=== PATIENT | female | born 1960 | race Caucasian/White ===

== ENCOUNTER 2016-11-11 14:09 | Emergency (ER) | payer OTHER ==
[2016-11-11] MEDS ORDERED: Nitrostat 0.4 MG (ED) SL ONE ×2 (14:22→14:35)
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
[2016-11-11 14:39] LABS: Eosinophil % 3.5 % (0.00-5.0); Granulocytes % 55.9 % (36.0-66.0); Mean Corpuscular Hemoglobin 31.2 pg (26-32); Mean Platelet Volume 9.2 fl (6-9.5); Monocytes % 7.6 % (0.0-12.0); Platelet Count 249 K/mm3 (150-450); Red Blood Count 4.45 M/mm3 (4.1-5.4); White Blood Count 5.1 K/mm3 (4.0-10.5)
--- NOTE | 2016-11-11 14:50 | XRAY ---
Indication: Chest pain/pressure. Comparison: July 13, 2014. PA/lateral chest again demonstrates normal heart and lungs. Bony thorax intact again with old left 4th/5th rib fractures with hardware and spinal degenerative changes. No new/acute findings.
[2016-11-11 15:00] LABS: INR 1.03 (0.8-3.0); PROTIME 11.6 SECONDS (9.95-12.35)
[2016-11-11 15:03] LABS: PTT 34.3 SECONDS (25.3-37.0)
[2016-11-11 15:15] LABS: ALBUMIN 3.9 g/dL (3.4-5.0); ANION GAP 15.5 MEQ/L (5-15); BILIRUBIN,TOTAL 0.2 mg/dL (0.2-1.0); Carbon Dioxide 21.2 mEq/L (21-32); Potassium 3.7 mEq/L (3.5-5.1); Total Protein 7.7 gm/dL (6.4-8.2)
[2016-11-11 15:35] VITALS: BP 103/61; PULSE 58; O2SAT 97
== END 2016-11-11 15:59 | disposition home or self-care (01) ==
LOC: ED 14:09
DX: M94.0 Chondrocostal junction syndrome [Tietze] (principal); R07.89 Other chest pain; R42 Dizziness and giddiness; R05 Cough
CPT/HCPCS: 36000; 36415; 71020; 80053; 82550; 83880; 84484; 85025; 85610; 85730; 93005; 93041; 99284; 99285; A9270-GY

== ENCOUNTER 2017-04-28 12:06 | Observation (INO) | payer OTHER ==
[2017-04-28] MEDS ORDERED: NITRO-BID 2% UD PACKETS TOP ONE (12:39)
[2017-04-28] MEDS ORDERED: Nitrostat 0.4 MG (ED) SL ONE ×2 (12:39→13:00)
[2017-04-28] MEDS ORDERED: Sodium Chloride 0.9% 1000 ML 1,000 ML IV SCH (12:45)
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
[2017-04-28] MEDS ORDERED: NITRO-BID 2% UD PACKETS ONE (13:00)
--- NOTE | 2017-04-28 13:02 | XRAY ---
Indication: Chest pain. Comparison: November 11, 2016. Portable chest again demonstrates normal heart and lungs. Bony thorax intact with stable left 4th/5th rib fixation hardware and mild spinal degenerative changes. No new/acute findings.
[2017-04-28 13:17] LABS: BASOPHIL % 0.5 % (0.0-0.4); Basophil (Absolute #) 0.03 (0-0.4); Eosinophil % 2.4 % (0.00-5.0); Eosinophil (Absolute #) 0.14 (0-0.5); Granulocyte Absolute (ANC) 3.35 (1.4-6.9); Granulocytes % 58.6 % (36.0-66.0); Hemoglobin 13.3 gm/dl (12.0-16.0); Lymphocyte (Absolute #) 1.83 (1.0-4.6); Lymphocytes % 31.9 % (24.0-44.0); Mean Cell Volume 92.2 fl (78-100); Mean Corpuscular Hemoglobin 30.6 pg (26-32); Mean Corpuscular Hgb Concent. 33.3 g/dl (32-36); Mean Platelet Volume 9.1 fl (6-9.5); Monocyte (Absolute #) 0.38 (0.0-1.3); Monocytes % 6.6 % (0.0-12.0); Platelet Count 254 K/mm3 (150-450); Red Blood Count 4.34 M/mm3 (4.1-5.4); Red Cell Distribution Width 12.3 % (11.5-14.0); White Blood Count 5.7 K/mm3 (4.0-10.5)
[2017-04-28 13:21] LABS: ALBUMIN 3.8 g/dL (3.4-5.0); ALKALINE PHOSPHATASE 108 U/L (46-116); ANION GAP 14.5 MEQ/L (5-15); BLOOD UREA NITROGEN 18 mg/dL (9-20); CHLORIDE 109 mEq/L (98-107); Calcium 8.6 mg/dL (8.5-10.1); Carbon Dioxide 21.7 mEq/L (21-32); Creatinine 1 0.86 mg/dl (0.55-1.30); EST GLOMERULAR FILTRATION RATE > 60 ML/MIN; Glucose 104 MG/DL (70-110); Potassium 3.7 mEq/L (3.5-5.1); SGOT/AST 18 U/L (15-37); SGPT/ALT 19 U/L (12-78); SODIUM 142 mEq/L (136-145)
[2017-04-28] MEDS ORDERED: MAALOX ES 30 ML UNIT DOSE PO PRN (15:06)
[2017-04-28] MEDS ORDERED: Nitrostat 0.4 MG Tablet SL PRN (15:06)
[2017-04-28] MEDS ORDERED: MILK OF MAGNESIA 30 ML PO PRN (15:06)
[2017-04-28] MEDS ORDERED: Senokot-S Tablet PO PRN (15:06)
[2017-04-28] MEDS ORDERED: Zofran 4 MG/2 ML VIAL IV PRN (15:06)
[2017-04-28] MEDS ORDERED: xanAX 0.5 MG PO PRN (15:10)
[2017-04-28] MEDS ORDERED: Sodium Chloride 0.9% 500 ML 500 ML IV SCH (15:15)
[2017-04-28 15:41] LABS: INR 1.06 (0.8-3.0)
[2017-04-28] MEDS: TYLENOL 325 MG PO PRN ×2 (16:09→21:44)
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
[2017-04-28] MEDS: Ranexa 500 MG PO SCH (21:43)
[2017-04-28] MEDS: Topamax 100 MG PO SCH (21:44)
[2017-04-28] MEDS: NITRO-BID 2% UD PACKETS TOP SCH (21:45)
[2017-04-28] MEDS: lamICTAL 100MG TABLET PO SCH (21:45)
[2017-04-28] MEDS ORDERED: ZOCOR 20MG PO SCH (22:00)
[2017-04-28] MEDS ORDERED: NON-FORMULARY ITEM (Topiramate [Topamax] 200 MG) PO SCH (22:00)
[2017-04-28] MEDS ORDERED: NON-FORMULARY ITEM (Atorvastatin Calcium [Lipitor] 1 TAB) PO SCH (22:00)
[2017-04-29] MEDS: NITRO-BID 2% UD PACKETS TOP SCH (05:42)
[2017-04-29] MEDS: TYLENOL 325 MG PO PRN (05:55)
[2017-04-29 07:39] VITALS: BP 138/67; PULSE 71; O2SAT 98
--- NOTE | 2017-04-29 08:18 | PCM.DS ---
Discharge Summary Date of Admission: 04/28/17 15:39 Admitting Physician: HELLEN WHARTON Primary Care Provider: HELLEN WHARTON Allergies Allergies pentazocine lactate [From [facility]] Allergy (Mild, Verified 04/28/17 12:24) Difficulty Breathing Hospital Summary - Hospital Course Hospital Course: patient was admitted with burning pain in the chest, CO has been ruled out. she has no chest pain at the time of arrival. follows with Dr Estes so will see him later this month as scheduled - Vitals & Intake/Output Vital Signs: Vital Signs Temperature 97.8 F 04/29/17 07:38 Pulse Rate 71 04/29/17 07:38 Respiratory Rate 20 04/29/17 07:38 Blood Pressure 138/67 04/29/17 07:38 O2 Sat by Pulse Oximetry 98 04/29/17 07:38 Oxygen-Last Documented O2 Percentage 2 Liters = 28% Intake & Output: Intake & Output 04/26/17 04/27/17 04/28/17 04/29/17 11:59 11:59 11:59 11:59 Intake Total 1682 Output Total 1200 Balance 482 Weight 98 kg - Lab Result Diagrams: 04/28/17 12:30 04/28/17 12:30 Lab Results-Last 24 Hrs: Lab Results-Last 24 Hours 04/28/17 04/28/17 04/29/17 Range/Units 19:28 21:50 00:45 Troponin I < 0.017 < 0.017 < 0.017 (0.000-0.056) ng/ml Triglycerides (30-200) mg/dL Cholesterol (100-200) mg/dL LDL Cholesterol (5-99) mg/dL HDL Cholesterol (35-60) mg/dL Heart Disease Risk Ratio 04/29/17 Range/Units 03:00 Troponin I (0.000-0.056) ng/ml Triglycerides 119 (30-200) mg/dL Cholesterol 158 (100-200) mg/dL LDL Cholesterol 84 (5-99) mg/dL HDL Cholesterol 53 (35-60) mg/dL Heart Disease Risk Ratio 3.0 - Procedures and Test Procedures and Tests throughout Hospitalization: Therapy Orders & Screens 04/28/17 15:06 EKG Q8HX2,QAMX3,PRN Comment: 04/28/17 20:00 EKG ONCE Comment: Diagnosis: chest pain 04/29/17 05:00 EKG ONCE Comment: Diagnosis: chest pain 04/30/17 05:00 EKG ONCE Comment: Diagnosis: chest pain 05/01/17 05:00 EKG ONCE Comment: Diagnosis: chest pain Discharge Exam General Appearance: no apparent distress, alert Skin Exam: normal color, warm, dry Respiratory Exam: normal breath sounds, lungs clear, No respiratory distress Cardiovascular Exam: regular rate/rhythm, normal heart sounds Gastrointestinal/Abdomen Exam: soft, No tenderness, No mass Extremity Exam: normal inspection, normal range of motion Final Diagnosis/Problem List - Final Discharge Diagnosis/Problem (1) Chest pain, rule out acute myocardial infarction Current Visit: No Status: Acute Assessment & Plan: CO ruled out, f/u with Dr Estes - Discharge Disposition: Home, Self-Care Condition: Stable Prescriptions: Continue Lamotrigine [Lamictal] 200 mg PO BID Fluoxetine HCl [Prozac] 40 mg PO DAILY Topiramate [Topamax] 200 mg PO BID Alprazolam [Xanax 0.5 mg] 0.5 mg PO TID PRN PRN Reason: Anxiety Ranolazine 500 MG [Ranexa 500 MG] 500 mg PO BID Propranolol HCl [Propranolol HCl ER] 80 mg PO DAILY Atorvastatin Calcium [Lipitor] 1 tab PO HS Nitroglycerin 0.4 mg Tablet [Nitrostat 0.4 MG Tablet] 0.4 mg SL UD PRN PRN Reason: Chest Pain Follow up with: HELLEN WHARTON MD [Primary Care Provider] - MARCUS ESTES [ACTIVE STAFF] - Call for Appointment
[2017-04-29] MEDS: Ranexa 500 MG PO SCH (09:48)
[2017-04-29] MEDS: Topamax 100 MG PO SCH (09:48)
[2017-04-29] MEDS: lamICTAL 100MG TABLET PO SCH (09:49)
[2017-04-29] MEDS ORDERED: NON-FORMULARY ITEM PO SCH (10:00)
[2017-04-29] MEDS ORDERED: Ecotrin 325 MG PO SCH (10:00)
[2017-04-29] MEDS ORDERED: Topamax 100 MG PO SCH (10:00)
[2017-04-29] MEDS ORDERED: Inderal 20 MG PO SCH (10:00)
[2017-04-29] MEDS ORDERED: Prozac 20 MG PO SCH (10:00)
[2017-04-29] MEDS ORDERED: NON-FORMULARY ITEM (Fluoxetine Hcl [Prozac] 40 MG) PO SCH (10:00)
== END 2017-04-29 11:00 | disposition home or self-care (01) ==
LOC: ED 12:06 → MED SURG 15:39
PROVIDERS: ADMIT Family Medicine; ATTEND Family Medicine
DX: R07.9 Chest pain, unspecified (principal); F41.9 Anxiety disorder, unspecified; Z79.899 Other long term (current) drug therapy; J44.9 Chronic obstructive pulmonary disease, unspecified; G47.30 Sleep apnea, unspecified; G40.909 Epilepsy, unspecified, not intractable, without status epilepticus; M19.90 Unspecified osteoarthritis, unspecified site; F31.9 Bipolar disorder, unspecified
CPT/HCPCS: 36000; 36415; 71045; 80053; 80061; 83721; 83735; 84484; 85025; 85379; 85610; 93005; 93268; 96360; 96361; 99285; G0378; J2405; A9270-GY

== ENCOUNTER 2018-02-02 23:05 | Emergency (ER) | payer MEDICARE ==
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
[2018-02-03 00:33] LABS: BASOPHIL % 0.3 % (0.0-0.4); Basophil (Absolute #) 0.03 (0-0.4); Eosinophil % 2.3 % (0.00-5.0); Eosinophil (Absolute #) 0.21 (0-0.5); Granulocyte Absolute (ANC) 6.21 (1.4-6.9); Granulocytes % 69.3 % (36.0-66.0); Hematocrit 42.2 % (35-47); Hemoglobin 13.9 gm/dl (12.0-16.0); Lymphocyte (Absolute #) 1.94 (1.0-4.6); Lymphocytes % 21.6 % (24.0-44.0); Mean Corpuscular Hemoglobin 31.3 pg (26-32); Mean Corpuscular Hgb Concent. 32.9 g/dl (32-36); Mean Platelet Volume 9.2 fl (6-9.5); Monocyte (Absolute #) 0.58 (0.0-1.3); Monocytes % 6.5 % (0.0-12.0); Platelet Count 184 K/mm3 (150-450); Red Blood Count 4.44 M/mm3 (4.1-5.4); Red Cell Distribution Width 12.4 % (11.5-14.0)
[2018-02-03 01:03] LABS: ANION GAP 11.3 MEQ/L (5-15); BLOOD UREA NITROGEN 15 mg/dL (7-17); CHLORIDE 109 mmol/L (98-107); Calcium 9.2 mg/dL (8.4-10.2); Carbon Dioxide 23 mmol/L (22-30); Creatinine 1 0.72 mg/dL (0.52-1.04); Glucose 100 mg/dL (74-106); SODIUM 139 mmol/L (137-145)
[2018-02-03] MEDS ORDERED: NORCO 5/325 MG PO ONE ×2 (01:42→02:23)
[2018-02-03] MEDS ORDERED: NORCO 5/325 MG ONE ×2 (02:05→02:30)
[2018-02-03] MEDS ORDERED: solu-MEDROL 125 MG IM ONE (02:15)
[2018-02-03 02:20] VITALS: BP 132/90; PULSE 71
[2018-02-03] MEDS ORDERED: solu-MEDROL 125 MG ONE (02:30)
[2018-02-03 02:56] VITALS: O2SAT 100
--- NOTE | 2018-02-03 08:58 | XRAY ---
Indication: Neck pain and edema. Status post endoscopy one day earlier. Comparison: April 28, 2017. PA/lateral chest again demonstrates normal heart and lungs with incidental bony degenerative changes and old left 4/5 rib fractures. No new/acute findings.
--- NOTE | 2018-02-03 09:01 | XRAY ---
Indication: Neck pain and edema. Status post endoscopy one day earlier. Multiple contiguous axial images obtained through the neck without contrast as ordered. Comparison: None A few bilateral dental amalgams produces beam artifact. Supra and infraglottic airway are widely patent. Normal epiglottis. No abnormal soft tissue air collection. Parotid and submandibular glands are bilaterally symmetric. Scattered small bilateral cervical and submandibular lymph nodes. No pathologic cervical or supraclavicular lymphadenopathy. Minimal carotid calcifications bilaterally. Underlying cervical spine intact with mild multilevel degenerative endplate spurring. Base of the brain and lung apices unremarkable. Impression: Negative CT neck without contrast exam. Comment: Preliminary interpretation was made by [facility]. No discrepancy. CT DI 11.43
== END 2018-02-03 02:52 | disposition home or self-care (01) ==
LOC: ED 23:05
DX: M54.2 Cervicalgia (principal); R22.1 Localized swelling, mass and lump, neck; Z98.890 Other specified postprocedural states; Z79.899 Other long term (current) drug therapy
CPT/HCPCS: 36415; 70490; 71046; 80048; 85025; 96372; 99284; J2930; A9270-GY

== ENCOUNTER 2018-03-19 16:05 | Emergency (ER) | payer MEDICARE ==
[2018-03-19 16:25] VITALS: BP 117/70; PULSE 71; O2SAT 96
[2018-03-19] MEDS ORDERED: ZOFRAN ODT 4 MG PO ONE (16:26)
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
[2018-03-19] MEDS ORDERED: ZOFRAN ODT 4 MG ONE (16:31)
== END 2018-03-19 16:37 | disposition home or self-care (01) ==
LOC: ED 16:05
DX: J32.9 Chronic sinusitis, unspecified (principal); H66.91 Otitis media, unspecified, right ear; R51 Headache; H92.01 Otalgia, right ear; Z79.899 Other long term (current) drug therapy; R11.0 Nausea
CPT/HCPCS: 99283; Q0162

== ENCOUNTER 2020-11-13 18:52 | Emergency (ER) | payer MEDICARE ==
[2020-11-13] MEDS ORDERED: Zofran 4 MG/2 ML VIAL IV ONE (19:34)
[2020-11-13] MEDS ORDERED: BABY ASPIRIN 81 MG CHEW PO ONE (19:34)
[2020-11-13] MEDS ORDERED: Pepcid 20 MG VIAL IV ONE ×2 (19:34→19:52)
[2020-11-13] MEDS ORDERED: Zofran 4 MG/2 ML VIAL ONE (19:52)
[2020-11-13] MEDS ORDERED: BABY ASPIRIN 81 MG CHEW ONE (19:52)
--- NOTE | 2020-11-13 19:52 | ERPHSYRPT ---
- History of Present Illness Time Seen by Provider: 11/13/20 19:34 Historian: patient Exam Limitations: no limitations Patient Subjective Stated Complaint: Pt states that her chest has been hurting for the past couple of days, susna ear pain, no appetite, pt stated that she had GERD for a couple of days and didn't think anything about it, pt has been around family members that were covid positive and they weren't aware they were positive, pain in shoulders and back when trying to take a breath Triage Nursing Assessment: Pt brought to the ER by her friend, vitals wnl, sinus rhythm, pain radiates under both breasts, rates pain 4/10, skin n/w/d, pulses normal, doesn't appear to be in any distress Physician History: 60 years old female with history of paroxysmal atrial fibrillation, hypertension vaccinated against COVID-19 presented in the ER with 2 days history of substernal/epigastric area with moderate intensity, dull aching/pressure/fullness sensation without any significant aggravating or relieving factors. Patient report associated nausea and heartburn for which she believes 2 hours or GERD symptoms. Minimal shortness of breath and palpitations at times. Patient also reports having congestion and bilateral ear fullness for the last 3 days without any sore throat. Reports feeling fatigued tired couple of days. Does have positive contact with confirmed cases of Covid. Timing/Duration: day(s) (2), constant, gradual onset, worse Activities at Onset: rest Quality: dullness, fullness Location: central, epigastric Chest Pain Radiation: no radiation Severity of Pain-Max: moderate Severity of Pain-Current: moderate Modifying Factors: Improves With: nothing Associated Symptoms: nausea, palpitations, heartburn, No vomiting Nitro Today/Relief: no nitro taken today Aspirin Treatment Today: unknown Allergies/Adverse Reactions: pentazocine lactate [From [employer]] Allergy (Mild, Verified 11/13/20 19:09) Difficulty Breathing Home Medications: Fluoxetine HCl [Prozac] 80 mg PO DAILY 06/09/14 [History] ALPRAZolam [Xanax 0.5 mg] 0.5 mg PO TID 05/05/15 [History] Topiramate [Topamax] 100 mg PO BID 05/05/15 [History] Atorvastatin Calcium [Lipitor] 10 mg PO HS 04/28/17 [History] Propranolol HCl [Propranolol HCl ER] 120 mg PO DAILY 04/28/17 [History] Gabapentin 300 mg [Neurontin 300 mg] 300 mg PO TID 11/13/20 [History] Tizanidine HCl 4 mg [Zanaflex 4 MG] 4 mg PO BID 11/13/20 [History] Trazodone HCl 100 mg PO DAILY 11/13/20 [History] Hx Tetanus, Diphtheria Vaccination/Date Given: Yes Hx Influenza Vaccination/Date Given: No Hx Pneumococcal Vaccination/Date Given: No Travel Risk - International Travel Have you traveled outside of the country in past 3 weeks: No - Coronavirus Screening Are you exhibiting any of the following symptoms?: No Close contact with a COVID-19 positive Pt in past 14-21 Days: Yes - Vaccine Status Have you recieved a Covid-19 vaccination: Yes 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: [employer] - Review of Systems Constitutional: Fatigue, Weakness Eyes: No Symptoms Ears, Nose, & Throat: Nose Congestion, Sinus Drainage Respiratory: Dyspnea Cardiac: Chest Pain, Palpitations Abdominal/Gastrointestinal: Nausea, No Vomiting Genitourinary Symptoms: No Symptoms Musculoskeletal: Myalgias Skin: No Symptoms Neurological: No Symptoms Psychological: No Symptoms Endocrine: No Symptoms Hematologic/Lymphatic: No Symptoms Immunological/Allergic: No Symptoms - Past Medical History Pertinent Past Medical History: Yes Neurological History: Epilepsy, Migraines, Seizures, Other ENT History: No Pertinent History Cardiac History: Arrhythmia, High Cholesterol Respiratory History: No Pertinent History, COPD Endocrine Medical History: No Pertinent History Musculoskeletal History: Osteoarthritis GI Medical History: No Pertinent History History: No Pertinent History Psycho-Social History: Bipolar, Depression, Anxiety Female Reproductive Disorders: No Pertinent History Other Medical History: Pt sees Dr. Carlton for a-fib. Dr doesn't want her lifting anything [place]. - Past Surgical History Past Surgical History: Yes Neuro Surgical History: No Pertinent History Cardiac: No Pertinent History Respiratory: No Pertinent History Gastrointestinal: No Pertinent History Genitourinary: No Pertinent History Musculoskeletal: Orthopedic Surgery Female Surgical History: Hysterectomy, Section Other Surgical History: Ribs - Social History Smoking Status: Former smoker Exposure to second hand smoke: No Drug Use: none Patient Lives Alone: Yes - Female History Hx Now: No - Nursing Vital Signs Nursing Vital Signs: Initial Vital Signs Temperature 98.0 F 08/25/21 18:53 Pulse Rate 65 11/13/20 18:53 Respiratory Rate 14 11/13/20 18:53 Blood Pressure 143/91 11/13/20 18:53 O2 Sat by Pulse Oximetry 99 11/13/20 18:53 Pain Scale Pain Intensity 5 - Physical Exam General Appearance: no apparent distress, alert Eye Exam: PERRL/EOMI, eyes nml inspection Ears, Nose, Throat Exam: moist mucous membranes, TM abnormal (R), TM abnormal (L), pharyngeal erythema Neck Exam: normal inspection, non-tender, full range of motion Respiratory Exam: normal breath sounds, lungs clear Cardiovascular Exam: regular rate/rhythm, normal heart sounds Gastrointestinal/Abdomen Exam: soft, normal bowel sounds, No tenderness, No distention Back Exam: normal inspection, normal range of motion Extremity Exam: normal inspection, normal range of motion Neurologic Exam: alert, oriented x 3, cooperative, roller billet mill II-XII nml as tested Skin Exam: normal color SpO2 Interpretation: normal SpO2: 99 O2 Delivery: Room Air - Course EKG Interpreted by Me: RATE ([id number]), Sinus Rhythm, NORMAL AXIS, NORMAL INTERVALS, NORMAL QRS Ordered Tests: Active Orders 24 hr Category Date Time Status Sheet Folder STAT Care 11/13/20 19:34 Active EKG-ER Only STAT Care 11/13/20 19:34 Active IV Insertion STAT Care 11/13/20 19:34 Active CHEST 1 VIEW (PORTABLE) Stat Exams 11/13/20 19:34 Taken CBC W DIFF Stat Lab 11/13/20 20:15 Completed CMP Stat Lab 11/13/20 20:15 Completed D-DIMER QUANTITATIVE Stat Lab 11/13/20 20:15 Completed LIPASE Stat Lab 11/13/20 20:15 Completed NT PRO BNP Stat Lab 11/13/20 20:15 Completed TROPONIN Q3H Lab 11/13/20 20:15 Completed TROPONIN Q3H Lab 11/13/20 22:45 Ordered TROPONIN Q3H Lab 11/14/20 01:45 Ordered TROPONIN Q3H Lab 11/14/20 04:45 Ordered TROPONIN Q3H Lab 11/14/20 07:45 Ordered Medication Summary Discontinued Medications Generic Name Dose Route Start Last Admin Trade Name Freq PRN Reason Stop Dose Admin Aspirin 324 mg 11/13/20 19:34 11/13/20 20:02 Baby Aspirin 81 Mg Chew PO 11/13/20 19:35 324 mg STAT ONE Administration Aspirin Confirm 11/13/20 19:52 Baby Aspirin 81 Mg Chew Administered 11/13/20 19:53 Dose 324 mg .ROUTE .STK-MED ONE Famotidine 20 mg 11/13/20 19:34 11/13/20 20:03 Pepcid 20 Mg Vial IV 11/13/20 19:35 20 mg STAT ONE Administration Famotidine Confirm 11/13/20 19:52 Pepcid 20 Mg Vial Administered 11/13/20 19:53 Dose 20 mg IV .STK-MED ONE Ondansetron HCl 4 mg 11/13/20 19:34 11/13/20 20:03 Zofran 4 Mg/2 Ml Vial IV 11/13/20 19:35 4 mg STAT ONE Administration Ondansetron HCl Confirm 11/13/20 19:52 Zofran 4 Mg/2 Ml Vial Administered 11/13/20 19:53 Dose 4 mg .ROUTE .STK-MED ONE Lab/Rad Data: Laboratory Result Diagrams 11/13/20 20:15 11/13/20 20:15 Laboratory Results 11/13/20 11/13/20 11/13/20 Range/Units 20:15 20:15 20:15 WBC (4.0-10.5) K/mm3 RBC (4.1-5.4) M/mm3 Hgb (12.0-16.0) gm/dl Hct (35-47) % MCV (78-100) fl MCH (26-32) pg MCHC (32-36) g/dl RDW (11.5-14.0) % Plt Count (150-450) K/mm3 MPV (7.5-11.0) fl Gran % (36.0-66.0) % Eos # (Auto) (0-0.5) Absolute Lymphs (auto) (1.0-4.6) Absolute Monos (auto) (0.0-1.3) Lymphocytes % (24.0-44.0) % Monocytes % (0.0-12.0) % Eosinophils % (0.00-5.0) % Basophils % (0.0-0.4) % Absolute Granulocytes (1.4-6.9) Basophils # (0-0.4) D-Dimer 281 (215-500) ng/mL Sodium 140 (137-145) mmol/L Potassium 4.1 (3.5-5.1) mmol/L Chloride 106 (98-107) mmol/L Carbon Dioxide 26 (22-30) mmol/L Anion Gap 12.5 (5-15) MEQ/L BUN 16 (7-17) mg/dL Creatinine 0.89 (0.52-1.04) mg/dL Estimated GFR > 60.0 ML/MIN Glucose 84 (74-106) mg/dL Calcium 9.6 (8.4-10.2) mg/dL Total Bilirubin 0.40 (0.2-1.3) mg/dL AST 29 (14-36) U/L ALT 17 (0-35) U/L Alkaline Phosphatase 95 (38-126) U/L Troponin I < 0.012 (0.000-0.034) ng/mL NT-Pro-B Natriuret Pep 186 (0-900) pg/mL Serum Total Protein 7.0 (6.3-8.2) g/dL Albumin 4.3 (3.5-5.0) g/dL Lipase 57 (23-300) U/L 08// Range/Units 20:15 WBC 5.5 (4.0-10.5) K/mm3 RBC 4.24 (4.1-5.4) M/mm3 Hgb 13.5 (12.0-16.0) gm/dl Hct 40.3 (35-47) % MCV 95.0 (78-100) fl MCH 31.8 (26-32) pg MCHC 33.5 (32-36) g/dl RDW 12.1 (11.5-14.0) % Plt Count 243 (150-450) K/mm3 MPV 8.8 (7.5-11.0) fl Gran % 60.2 (36.0-66.0) % Eos # (Auto) 0.14 (0-0.5) Absolute Lymphs (auto) 1.63 (1.0-4.6) Absolute Monos (auto) 0.41 (0.0-1.3) Lymphocytes % 29.5 (24.0-44.0) % Monocytes % 7.4 (0.0-12.0) % Eosinophils % 2.5 (0.00-5.0) % Basophils % 0.4 (0.0-0.4) % Absolute Granulocytes 3.33 (1.4-6.9) Basophils # 0.02 (0-0.4) D-Dimer (215-500) ng/mL Sodium (137-145) mmol/L Potassium (3.5-5.1) mmol/L Chloride (98-107) mmol/L Carbon Dioxide (22-30) mmol/L Anion Gap (5-15) MEQ/L BUN (7-17) mg/dL Creatinine (0.52-1.04) mg/dL Estimated GFR ML/MIN Glucose (74-106) mg/dL Calcium (8.4-10.2) mg/dL Total Bilirubin (0.2-1.3) mg/dL AST (14-36) U/L ALT (0-35) U/L Alkaline Phosphatase (38-126) U/L Troponin I (0.000-0.034) ng/mL NT-Pro-B Natriuret Pep (0-900) pg/mL Serum Total Protein (6.3-8.2) g/dL Albumin (3.5-5.0) g/dL Lipase (23-300) U/L - Progress Progress: improved Air Movement: good Progress Note: 11/13/20 21:51 60 years old is evaluated for nonspecific symptoms of chest pain, cough, body aches suggestive of viral etiology. EKG normal sinus rhythm, not in any distress, not hypoxic, tachypneic or tachycardic. Negative chest pain work-up including D-dimer and troponins and the amount of time symptoms with going on I do not think needs second troponins.. Chest x-ray negative for any acute cardiopulmonary findings reviewed by me, official report is pending. I believe patient symptoms could be viral etiology, will obtain COVID-19 send out test, recommended precautions and outpatient follow-up. Discussed signs symptoms of worsening needing return to ER which he seems understanding. Stable for discharge. Blood Culture(s) Obtained: No Antibiotics given: No Counseled pt/family regarding: lab results, diagnosis, need for follow-up, rad results - Departure Departure Disposition: Home Clinical Impression: Viral syndrome, Atypical chest pain Condition: Stable Critical Care Time: No Referrals: HELLEN WHARTON MD [Primary Care Provider] - (Call for appointment tomorrow) Instructions: Angina (DC), Viral Syndrome (DC) Additional Instructions: Follow contact/droplet precautions. Keep yourself well-hydrated. Follow-up with primary care for reevaluation. Return to ER for worsening chest pain or if develop fever chills/cough/shortness of breath etc.
[2020-11-13 20:21] LABS: Absolute Neutrophil Ct (ANC) 3.33 (1.4-6.9); BASOPHIL % 0.4 % (0.0-0.4); Basophil (Absolute #) 0.02 (0-0.4); Eosinophil % 2.5 % (0.00-5.0); Eosinophil (Absolute #) 0.14 (0-0.5); Hematocrit 40.3 % (35-47); Hemoglobin 13.5 gm/dl (12.0-16.0); Lymphocyte (Absolute #) 1.63 (1.0-4.6); Lymphocytes % 29.5 % (24.0-44.0); Mean Corpuscular Hemoglobin 31.8 pg (26-32); Mean Corpuscular Hgb Concent. 33.5 g/dl (32-36); Mean Platelet Volume 8.8 fl (7.5-11.0); Monocyte (Absolute #) 0.41 (0.0-1.3); Monocytes % 7.4 % (0.0-12.0); Neutrophil % 60.2 % (36.0-66.0); Platelet Count 243 K/mm3 (150-450); Red Blood Count 4.24 M/mm3 (4.1-5.4); Red Cell Distribution Width 12.1 % (11.5-14.0); White Blood Count 5.5 K/mm3 (4.0-10.5)
[2020-11-13 20:42] LABS: ALBUMIN 4.3 g/dL (3.5-5.0); ALKALINE PHOSPHATASE 95 U/L (38-126); ANION GAP 12.5 MEQ/L (5-15); BLOOD UREA NITROGEN 16 mg/dL (7-17); CHLORIDE 106 mmol/L (98-107); Calcium 9.6 mg/dL (8.4-10.2); Carbon Dioxide 26 mmol/L (22-30); Creatinine 1 0.89 mg/dL (0.52-1.04); EST GLOMERULAR FILTRATION RATE > 60.0 ML/MIN; Glucose 84 mg/dL (74-106); LIPASE 57 U/L (23-300); NT PRO BNP 186 pg/mL (0-900); Potassium 4.1 mmol/L (3.5-5.1); SGOT/AST 29 U/L (14-36); SGPT/ALT 17 U/L (0-35); SODIUM 140 mmol/L (137-145)
[2020-11-13 22:26] VITALS: BP 133/94; PULSE 64; O2SAT 98
--- NOTE | 2020-11-14 08:50 | XRAY ---
Indication: Chest pain, short of breath, earache, body ache, and fatigue. Covid 19 exposure. Comparison: February 03, 2018. Portable chest again demonstrates minimal left base fibrosis/scarring. Remaining heart and lungs normal. Bony thorax intact again with mild degenerative changes and old left 4/5 rib fractures. No new/acute findings.
== END 2020-11-13 22:20 | disposition home or self-care (01) ==
LOC: ED 18:52
DX: B34.9 Viral infection, unspecified (principal); R07.89 Other chest pain
CPT/HCPCS: 36415; 71045; 80053; 83690; 83880; 84484; 85025; 85379; 96374; 96375; 99284; U0003; J2405; A9270-GY

== ENCOUNTER 2022-02-02 16:12 | Emergency (ER) | payer MEDICARE ==
[2022-02-02 17:42] VITALS: BP 143/87; PULSE 63; O2SAT 98
--- NOTE | 2022-02-02 17:49 | XRAY ---
Indication: Head injury following fall. Multiple contiguous axial images obtained through the head. Comparison: None Normal appearing brain parenchyma, ventricles, and bony calvarium. Incidental mild hyperostosis frontalis interna. Visualized paranasal sinuses and mastoid air cells are clear. Impression: Normal CT head without contrast exam.
--- NOTE | 2022-02-02 17:51 | XRAY ---
Indication: Head injury following fall. Multiple contiguous axial images obtained through the cervical spine. Sagittal and coronal reformatted images obtained. Comparison: None Axial images negative for acute fracture, suspicious bony lesions, or spinal canal stenosis. Minimal C4-T1 degenerative endplate spurring. Facets are symmetric. Sagittal and coronal reformatted images demonstrates lordotic straightening, positional versus paraspinal spasm. Minimal C5-T1 disc space narrowing. No acute compression fracture, subluxation, or jumped facet. Normal appearing craniocervical junction. Visualized noncontrasted soft tissues demonstrates mild bilateral carotid calcifications. Impression: 1. Cervical lordotic straightening, positional versus paraspinal spasm. 2. Negative acute fracture/subluxation. 3. Minimal multilevel degenerative changes.
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
[2022-02-02] MEDS ORDERED: TYLENOL 325 MG PO ONE (18:19)
[2022-02-02] MEDS ORDERED: TYLENOL 325 MG ONE (18:21)
--- NOTE | 2022-02-04 08:17 | XRAY ---
Indication: Pain following fall. Comparison: June 29, 2017 3 view right knee unchanged again demonstrating osteopenia and total knee arthroplasty with intact prosthesis/articulation. No new/acute findings.
== END 2022-02-02 18:38 | disposition home or self-care (01) ==
LOC: ED 16:12
DX: S00.83XA Contusion of other part of head, initial encounter (principal); S83.91XA Sprain of unspecified site of right knee, initial encounter; S16.1XXA Strain of muscle, fascia and tendon at neck level, initial encounter; W01.10XA Fall on same level from slipping, tripping and stumbling with subsequent striking against unspecified object, initial encounter; Y92.007 Garden or yard of unspecified non-institutional (private) residence as the place of occurrence of the external cause; M25.511 Pain in right shoulder; J44.9 Chronic obstructive pulmonary disease, unspecified; Z79.899 Other long term (current) drug therapy
CPT/HCPCS: 70450; 72125; 73562; 99283; A9270-GY

== ENCOUNTER 2022-12-02 14:18 | Day surgery (SDC) | payer MEDICARE ==
[2022-12-02] MEDS ORDERED: LIDOCAINE HCL 2% 100 MG/5 ML IJ ONE (14:19)
[2022-12-02] MEDS ORDERED: DIPRIVAN 200 MG/20 ML IV ONE (15:55)
[2022-12-02] MEDS ORDERED: Xylocaine-Mpf 2% 5 Ml Vial ONE (15:57)
[2022-12-02] MEDS ORDERED: Lactated Ringers 1,000 ML IV ONE (16:48)
--- NOTE | 2022-12-02 16:53 | XRAY ---
Indication: Bilateral L4-S1 MBB. Intraoperative fluoroscopy provided for 23 seconds. Single digital spot image submitted for interpretation demonstrates posterior needle tips projecting over the expected left and right L4-S1 nerve roots. Correlate with intraoperative findings/report.
--- NOTE | 2022-12-02 16:57 | XRAY ---
23 seconds of fluoroscopy was used in surgery for a bilateral L4-S1 MBB.
== END 2022-12-02 16:25 | disposition home or self-care (01) ==
LOC: SDC-PAIN 14:18
PROVIDERS: ATTEND Psychiatry & Neurology Pain Medicine
DX: M47.816 Spondylosis without myelopathy or radiculopathy, lumbar region (principal); Z79.899 Other long term (current) drug therapy
CPT/HCPCS: 64493; 64494; 72020; 77002; J2704

== ENCOUNTER 2023-02-11 13:19 | Observation (INO) | payer MEDICARE ==
[2023-02-11] MEDS ORDERED: NORCO 5/325 MG PO ONE (13:53)
[2023-02-11] MEDS ORDERED: ZOFRAN ODT 4 MG PO ONE (13:53)
--- NOTE | 2023-02-11 13:53 | ERPHSYRPT ---
- History of Present Illness Time Seen by Provider: 02/11/23 13:24 Source: patient Exam Limitations: no limitations Patient Subjective Stated Complaint: PT HERE FOR EARACHE, SOB, N/V X1, HEADACHE Triage Nursing Assessment: PT ARRIVED PER AMBULANCE, ALERT, RESP EASY, SKIN W/D/P. NO COUGH, ABD SOFT Physician History: 63-year-old female With history of hypertension, atrial fibrillation, anxiety, depression, GERD, migraine presented in the ER with chief complaint of flulike symptoms since last night. Patient reports having headache, sinus/nasal congestion/sore throat, mild cough and generalized chest tightness and mild difficulty breathing. Reports progressive worsening. Patient reports getting short of breath with activity and better with resting. Reports subjective feeling of fever and chills. Patient is mild tachypneic and tachycardic on presentation. She is not in any distress. Lungs fairly clear to auscultation. Oxygen saturation in low 90s with resting on presentation but dropping in upper 80s even resting. Patient heart rate is going in 140s with ambulation. Chest x-ray showed mild airspace disease on the right side but no other acute consolidation. Has positive COVID-19. Allergies/Adverse Reactions: pentazocine lactate [From [employer]] Allergy (Mild, Verified 02/11/23 13:23) Difficulty Breathing Home Medications: ALPRAZolam [Xanax 0.5 mg] 0.5 mg PO TID 05/05/15 [History] Gabapentin [Neurontin 300 mg] 300 mg PO TID 11/13/20 [History] ARIPiprazole [Aripiprazole] 5 mg PO DAILY 02/11/23 [History] Albuterol Common Canister [Ventolin Common Canister] 2 puff IH Q6H PRN PRN 02/11/23 [History] Budesonide/Glycopyr/Formoterol [Breztri Aerosphere Inhaler] 2 puffs IH BID 02/11/23 [History] Bumetanide 1 mg [Bumex 1 mg] 1 ea DAILY 02/11/23 [History] Omeprazole 40 mg PO DAILY 02/11/23 [History] Propranolol HCl [Propranolol HCl ER] 120 mg PO DAILY 02/11/23 [History] Hx Tetanus, Diphtheria Vaccination/Date Given: Yes Hx Influenza Vaccination/Date Given: No Hx Pneumococcal Vaccination/Date Given: No Immunizations Up to Date: Yes Travel Risk - International Travel Have you traveled outside of the country in past 3 weeks: No - Coronavirus Screening Are you exhibiting any of the following symptoms?: Yes Symptoms: Fever, Shortness of Breath, Vomiting/Diarrhea - Vaccine Status Have you recieved a Covid-19 vaccination: Yes [employer]: [employer] - Vaccination Dates Dates if Unknown: ? - Review of Systems Constitutional: Fever, Fatigue, Weakness Eyes: No Symptoms Ears, Nose, & Throat: Nose Congestion, Throat Pain Respiratory: Cough, Dyspnea, Dyspnea on Exertion (METZGER) Cardiac: Chest Pain Abdominal/Gastrointestinal: Nausea Genitourinary Symptoms: No Symptoms Musculoskeletal: Myalgias Skin: No Symptoms Neurological: Headache Psychological: Anxiety Endocrine: No Symptoms Hematologic/Lymphatic: No Symptoms - Past Medical History Pertinent Past Medical History: Yes Neurological History: No Pertinent History ENT History: No Pertinent History Cardiac History: Arrhythmia Respiratory History: COPD Endocrine Medical History: No Pertinent History Musculoskeletal History: Arthritis GI Medical History: No Pertinent History History: No Pertinent History Psycho-Social History: Bipolar, Depression, Anxiety Female Reproductive Disorders: No Pertinent History Other Medical History: A-FIB, X-RAY'S WERE NEGATIVE OF HER FEET. R TKA. - Past Surgical History Past Surgical History: Yes Neuro Surgical History: No Pertinent History Cardiac: No Pertinent History Respiratory: No Pertinent History Gastrointestinal: No Pertinent History Genitourinary: No Pertinent History Musculoskeletal: Orthopedic Surgery Female Surgical History: Hysterectomy, Section Other Surgical History: Ribs - Social History Smoking Status: Former smoker Exposure to second hand smoke: No Drug Use: none Patient Lives Alone: Yes - Nursing Vital Signs Nursing Vital Signs: Initial Vital Signs Respiratory Rate 18 02/11/23 13:29 O2 Sat by Pulse Oximetry 97 02/11/23 13:29 Pain Scale Pain Intensity 4 - Physical Exam General Appearance: no apparent distress, alert, anxiety Eye Exam: PERRL/EOMI, eyes nml inspection Ears, Nose, Throat Exam: moist mucous membranes, pharyngeal erythema Neck Exam: normal inspection, non-tender, supple, full range of motion Respiratory Exam: lungs clear, diminished breath sounds Cardiovascular Exam: tachycardia, irregular Gastrointestinal/Abdomen Exam: soft, normal bowel sounds, No tenderness Back Exam: normal inspection Extremity Exam: normal inspection, normal range of motion Neurologic Exam: alert, oriented x 3, 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, 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 Skin Exam: normal color SpO2 Interpretation: normal SpO2: 94 O2 Delivery: Room Air - Course EKG Interpreted by Me: RATE (119), A-fib, NORMAL AXIS, prolonged QT interval, Non-specific ST Changes Ordered Tests: Active Orders 24 hr Category Date Time Status Bedrest ROUTINE Activity 02/11/23 19:27 Active Up With Assistance ROUTINE Activity 02/11/23 19:27 Active Call Admit Doctor for Orders ON ADMISSION Care 02/11/23 19:27 Active Half Section Ironer ROUTINE Care 02/11/23 19:27 Active Code Status Order ROUTINE Care 02/11/23 19:27 Active EKG-ER Only STAT Care 02/11/23 15:56 Completed Fall Protocol Q1H Care 02/11/23 19:[address] in Observation ROUTINE Care 02/11/23 19:27 Active Heart-Healthy Diet Diet 02/12/23 Breakfast Active CHEST 1 VIEW (PORTABLE) Stat Exams 02/11/23 13:53 Completed BLOOD CULTURE Stat Lab 02/11/23 16:10 Received CBC W DIFF Stat Lab 02/11/23 16:00 Completed CMP Stat Lab 02/11/23 16:00 Completed Lactic Acid Stat Lab 02/11/23 15:40 Completed PROCALCITONIN Stat Lab 02/11/23 16:00 Completed TROPONIN Q4H Lab 02/11/23 16:00 Completed TROPONIN Q4H Lab 02/11/23 20:22 Completed TROPONIN Q4H Lab 02/11/23 23:50 Completed Oxygen Nasal Cannula 2 lpm RT 02/11/23 19:27 Active Pulse Oximetry CONTINUOUS RT 02/11/23 19:27 Active Respiratory Therapy Consult ONCE RT 02/11/23 19:27 Active Medication Summary Generic Name Dose Route Start Last Admin Trade Name Freq PRN Reason Stop Dose Admin Alprazolam 0.5 mg 02/11/23 22:00 02/12/23 10:54 Alprazolam 0.5 Mg Tablet PO 03/13/23 21:59 0.5 mg TID NEVIN Administration Ascorbic Acid 1,500 mg 02/12/23 10:00 02/12/23 10:54 Ascorbic Acid 500 Mg Tablet PO 03/14/23 09:59 1,500 mg DAILY NEVIN Administration Dexamethasone Sodium Phosphate 4 mg 02/11/23 20:15 02/12/23 08:34 Dexamethasone Sod Phosphate 4 Mg/Ml Ml IV 03/13/23 20:14 4 mg Q6H NEVIN Administration Gabapentin 300 mg 02/11/23 22:00 02/12/23 10:54 Gabapentin 300 Mg Capsule PO 03/13/23 21:59 300 mg TID NEVIN Administration Heparin Sodium (Beef Lung) 5,000 unit 02/12/23 10:00 02/12/23 10:55 Heparin 5000 Units/0.5 Ml 5,000 Unit/0.5 Ml Syr SQ 03/14/23 09:59 5,000 unit BID NEVIN Administration Sodium Chloride 1,000 mls @ 50 mls/hr 02/11/23 20:15 02/11/23 20:52 Sodium Chloride 0.9% 1000 Ml IV 03/13/23 20:14 50 mls/hr .Q20H NEVIN Administration Pantoprazole Sodium 40 mg 02/12/23 10:00 02/12/23 10:55 Protonix (Pantoprazole) 40 Mg Tablet PO 03/14/23 09:59 40 mg DAILY NEVIN Administration Patient Own Med : 4 each 02/11/23 23:00 02/12/23 11:15 Albuterol Mdi 03/13/23 22:59 4 each Q4HRT NEVIN Administration Patient Own Med: 2 each 02/12/23 07:00 02/12/23 07:10 Breztri Mdi 160/9/4. IH 03/14/23 06:59 2 each 8 BIDRT NEVIN Administration Propranolol HCl 60 mg 02/12/23 10:00 02/12/23 10:54 Propranolol Hcl 20 Mg Tablet PO 03/14/23 09:59 60 mg DAILY NEVIN Administration Zinc Gluconate 50 mg 02/12/23 10:00 02/12/23 10:54 Zinc Gluconate 50 Mg Tablet PO 03/14/23 09:59 50 mg DAILY NEVIN Administration Discontinued Medications Generic Name Dose Route Start Last Admin Trade Name Freq PRN Reason Stop Dose Admin Hydrocodone Bitart/Acetaminophen 1 tab 02/11/23 13:53 02/11/23 14:45 Hydrocodone/Apap 5/325 1 Tab Tablet PO 02/11/23 13:54 1 tab STAT ONE Administration Hydrocodone Bitart/Acetaminophen Confirm 02/11/23 14:44 Hydrocodone/Apap 5/325 1 Tab Tablet Administered 02/11/23 14:45 Dose 1 tab .ROUTE .STK-MED ONE Albuterol/Ipratropium 3 ml 02/11/23 23:00 Ipratropium/Albuterol Sulfate 3 Ml Ampul.Neb IH 03/13/23 22:59 Q4HRT NEVIN Dexamethasone Sodium Phosphate 6 mg 02/11/23 15:41 02/11/23 16:15 Dexamethasone Sod Phosphate 10 Mg/Ml IV 02/11/23 15:42 6 mg STAT ONE Administration Dexamethasone Sodium Phosphate Confirm 02/11/23 16:13 Dexamethasone Sod Phosphate 10 Mg/Ml Administered 02/11/23 16:14 Dose 10 mg .ROUTE .STK-MED ONE Diltiazem HCl 15 mg 02/11/23 17:01 02/11/23 17:10 Diltiazem Hcl Iv 5 Mg/Ml Vial IV 02/11/23 17:02 15 mg STAT ONE Administration Diltiazem HCl Confirm 02/11/23 17:05 Diltiazem Hcl Iv 5 Mg/Ml Vial Administered 02/11/23 17:06 Dose 50 mg IV .STK-MED ONE Diltiazem HCl 100 mls @ 5 mls/hr 02/11/23 17:01 02/11/23 19:27 Cardizem Drip 100 Mg/100 Ml D5w IV 03/13/23 17:00 0 mg/hr .Q20H PRN 0 mls/hr HEART RATE/ A-FIB Titration Protocol 5 MG/HR Sodium Chloride 1,000 mls @ 999 mls/hr 02/11/23 17:32 02/11/23 18:49 Sodium Chloride 0.9% 1000 Ml IV 02/11/23 18:32 Infused .Q1H1M STA Infusion Sodium Chloride Confirm 02/11/23 17:35 Sodium Chloride 0.9% 1000 Ml Administered 02/11/23 17:36 Dose 1,000 mls @ ud .ROUTE .STK-MED ONE Ondansetron HCl 4 mg 02/11/23 13:53 02/11/23 14:28 Zofran 4 Mg/Udtablet Orally Disintegrating PO 02/11/23 13:54 4 mg STAT ONE Administration Ondansetron HCl Confirm 02/11/23 14:27 Zofran 4 Mg/Udtablet Orally Disintegrating Administered 02/11/23 14:28 Dose 4 mg .ROUTE .STK-MED ONE Propranolol HCl 60 mg 02/11/23 22:00 02/11/23 20:57 Propranolol Hcl 20 Mg Tablet PO 03/13/23 21:59 60 mg BID NEVIN Administration Lab/Rad Data: Laboratory Result Diagrams 02/11/23 16:00 02/11/23 16:00 Laboratory Results 02/11/23 02/11/23 02/11/23 Range/Units 16:00 16:00 16:00 WBC (4.0-10.5) x10^3/uL RBC (4.1-5.4) x10^6/uL Hgb (12.0-16.0) g/dL Hct (35-47) % MCV (78-100) fL MCH (26-32) pg MCHC (32-36) g/dL RDW (11.5-14.0) % Plt Count (150-450) x10^3/uL MPV (7.5-11.0) fL Gran % (36.0-66.0) % Immature Gran % (Auto) (0.00-0.4) % Nucleat RBC Rel Count (0.00-0.1) % Eos # (Auto) (0-0.5) x10^3/uL Immature Gran # (Auto) (0.00-0.03) x10^3u/L Absolute Lymphs (auto) (1.0-4.6) x10^3/uL Absolute Monos (auto) (0.0-1.3) x10^3/uL Absolute Nucleated RBC (0.00-0.01) x10^3u/L Lymphocytes % (24.0-44.0) % Monocytes % (0.0-12.0) % Eosinophils % (0.00-5.0) % Basophils % (0.0-0.4) % Absolute Granulocytes (1.4-6.9) x10^3/uL Basophils # (0-0.4) x10^3/uL Sodium 136 L (137-145) mmol/L Potassium 3.7 (3.5-5.1) mmol/L Chloride 104 (98-107) mmol/L Carbon Dioxide 23 (22-30) mmol/L Anion Gap 12.3 (5-15) MEQ/L BUN 15 (7-17) mg/dL Creatinine 0.67 (0.52-1.04) mg/dL Estimated GFR 99.4 ML/MIN Glucose 144 H (74-106) mg/dL Lactic Acid (0.4-2.0) Calcium 9.0 (8.4-10.2) mg/dL Total Bilirubin 0.50 (0.2-1.3) mg/dL AST 31 (14-36) U/L ALT 26 (0-35) U/L Alkaline Phosphatase 117 (38-126) U/L Troponin I < 0.012 (0.000-0.034) ng/mL Serum Total Protein 7.4 (6.3-8.2) g/dL Albumin 4.1 (3.5-5.0) g/dL Procalcitonin 0.065 (0.030-0.080) ng/mL Influenza Type A Ag (NEGATIVE) Influenza Type B Ag (NEGATIVE) RSV (PCR) (NEGATIVE) SARS-CoV-2 (PCR) (NEGATIVE) Slides for Path Review 02/11/23 02/11/23 02/11/23 Range/Units 16:00 15:40 13:58 WBC 6.5 (4.0-10.5) x10^3/uL RBC 4.53 (4.1-5.4) x10^6/uL Hgb 13.4 (12.0-16.0) g/dL Hct 40.9 (35-47) % MCV 90.3 (78-100) fL MCH 29.6 (26-32) pg MCHC 32.8 (32-36) g/dL RDW 12.4 (11.5-14.0) % Plt Count 269 (150-450) x10^3/uL MPV 8.9 (7.5-11.0) fL Gran % 85.6 H (36.0-66.0) % Immature Gran % (Auto) 0.6 H (0.00-0.4) % Nucleat RBC Rel Count 0.0 (0.00-0.1) % Eos # (Auto) 0 (0-0.5) x10^3/uL Immature Gran # (Auto) 0.04 H (0.00-0.03) x10^3u/L Absolute Lymphs (auto) 0.33 L (1.0-4.6) x10^3/uL Absolute Monos (auto) 0.55 (0.0-1.3) x10^3/uL Absolute Nucleated RBC 0.00 (0.00-0.01) x10^3u/L Lymphocytes % 5.1 L (24.0-44.0) % Monocytes % 8.4 (0.0-12.0) % Eosinophils % 0.0 (0.00-5.0) % Basophils % 0.3 (0.0-0.4) % Absolute Granulocytes 5.58 (1.4-6.9) x10^3/uL Basophils # 0.02 (0-0.4) x10^3/uL Sodium (137-145) mmol/L Potassium (3.5-5.1) mmol/L Chloride (98-107) mmol/L Carbon Dioxide (22-30) mmol/L Anion Gap (5-15) MEQ/L BUN (7-17) mg/dL Creatinine (0.52-1.04) mg/dL Estimated GFR ML/MIN Glucose (74-106) mg/dL Lactic Acid 1.3 (0.4-2.0) Calcium (8.4-10.2) mg/dL Total Bilirubin (0.2-1.3) mg/dL AST (14-36) U/L ALT (0-35) U/L Alkaline Phosphatase (38-126) U/L Troponin I (0.000-0.034) ng/mL Serum Total Protein (6.3-8.2) g/dL Albumin (3.5-5.0) g/dL Procalcitonin (0.030-0.080) ng/mL Influenza Type A Ag NEGATIVE (NEGATIVE) Influenza Type B Ag NEGATIVE (NEGATIVE) RSV (PCR) NEGATIVE (NEGATIVE) SARS-CoV-2 (PCR) POSITIVE A (NEGATIVE) Slides for Path Review YES - Progress Progress: re-examined Air Movement: fair Progress Note: 02/11/23 17:57 63-year-old is evaluated for flulike symptoms since yesterday. Patient is tachypneic and tachycardic on presentation. Her oxygen saturation is borderline and even resting oxygen is dropping and upper 80s//low 90s. With ambulation her heart rate is in 140s. Patient is in A-fib with RVR. She is given fluids but no significant improvement in the heart rate, started on Cardizem drip. Chest x-ray showed right side airspace disease but no consolidation. Normal white count, fairly unremarkable chemistries and negative troponin. Patient has positive COVID-19. I have discussed with Dr. Acuna hospitalist on-call, reviewed history, workup and agreed with admission. I have discussed the results of workup with patient and plan of admission which she understands and agrees. Blood Culture(s) Obtained: Yes Antibiotics given: No Counseled pt/family regarding: lab results, diagnosis, need for follow-up, rad results Medical Desision Making - Discussion of managment Care discussed with:: hospitalist (Dr. Acuna) Reviewed:: Test results Agreed on:: Treatment plan, need for follow-up Will see patient: in hospital - Diagnostic Testing Diagnostic test were ordered, analyzed, and reviewed by me: Yes Radiological Interpretation: Interpreted by me, Reviewed by me - Risk of complications The pt has a high risk of morbidity or mortality based on: Decision regarding hospitilization or escalation of hosp level of care - Departure Departure Disposition: Observation Clinical Impression: Atrial fibrillation with RVR, Pneumonia due to COVID-19 virus Condition: Stable Critical Care Time: No
[2023-02-11] MEDS ORDERED: ZOFRAN ODT 4 MG ONE (14:27)
[2023-02-11] MEDS ORDERED: NORCO 5/325 MG ONE (14:44)
[2023-02-11 14:48] LABS: INFLUENZA A NEGATIVE (NEGATIVE); INFLUENZA B NEGATIVE (NEGATIVE); RESPIRATORY SYNCTIAL VIRUS NEGATIVE (NEGATIVE)
[2023-02-11 14:49] LABS: SARS-CoV-2 Xpert Express POSITIVE (NEGATIVE)
[2023-02-11] MEDS ORDERED: DECADRON 10MG INJ. IV ONE (15:41)
[2023-02-11] MEDS ORDERED: DECADRON 10MG INJ. ONE (16:13)
[2023-02-11 16:14] LABS: Absolute Neutrophil Ct (ANC) 5.58 x10^3/uL (1.4-6.9); BASOPHIL % 0.3 % (0.0-0.4); Basophil (Absolute #) 0.02 x10^3/uL (0-0.4); Eosinophil (Absolute #) 0 x10^3/uL (0-0.5); Hematocrit 40.9 % (35-47); Hemoglobin 13.4 g/dL (12.0-16.0); IMMATURE GRAN # 0.04 x10^3u/L (0.00-0.03); IMMATURE GRAN % 0.6 % (0.00-0.4); Lymphocyte (Absolute #) 0.33 x10^3/uL (1.0-4.6); Lymphocytes % 5.1 % (24.0-44.0); Mean Cell Volume 90.3 fL (78-100); Mean Corpuscular Hemoglobin 29.6 pg (26-32); Mean Corpuscular Hgb Concent. 32.8 g/dL (32-36); Mean Platelet Volume 8.9 fL (7.5-11.0); Monocyte (Absolute #) 0.55 x10^3/uL (0.0-1.3); Monocytes % 8.4 % (0.0-12.0); Neutrophil % 85.6 % (36.0-66.0); Platelet Count 269 x10^3/uL (150-450); Red Blood Count 4.53 x10^6/uL (4.1-5.4); Red Cell Distribution Width 12.4 % (11.5-14.0); White Blood Count 6.5 x10^3/uL (4.0-10.5)
[2023-02-11 16:29] LABS: ALBUMIN 4.1 g/dL (3.5-5.0); ANION GAP 12.3 MEQ/L (5-15); BILIRUBIN,TOTAL 0.5 mg/dL (0.2-1.3); Creatinine 1 0.67 mg/dL (0.52-1.04); EST GLOMERULAR FILTRATION RATE 99.4 ML/MIN; Potassium 3.7 mmol/L (3.5-5.1); Total Protein 7.4 g/dL (6.3-8.2)
[2023-02-11 16:40] LABS: Slide Review 1 YES
[2023-02-11] MEDS ORDERED: Cardizem IV 50 MG/10 ML IV ONE ×2 (17:01→17:05)
[2023-02-11] MEDS ORDERED: CARDIZEM DRIP 100 MG/100 ML D5W 100 ML IV PRN (17:01)
[2023-02-11] MEDS ORDERED: Sodium Chloride 0.9% 1000 ML 1,000 ML IV STA (17:32)
[2023-02-11] MEDS ORDERED: Sodium Chloride 0.9% 1000 ML 1,000 ML ONE (17:35)
--- NOTE | 2023-02-11 19:33 | PCM.HP ---
History of Present Illness - Chief Complaint Chief Complaint: cough Date: 02/11/23 History of Present Illness: Ms. Jensen is a 63 year old female with a past medical history significant for hypertension, hyperlipidemia, COPD and atrial fibrillation who presents to the hospital with complaints of shortness of breath associated with non-productive cough. She was initially tachycardic and given IVFs but without much change, so she was started on a cardizem drip. She has tested positive for COVID19. She is resting in bed, awake/alert, hemodynamically stable but desaturates into the 80s with activity. Based on her tachycardia, hypoxemia, and shortness of breath, she has been recommended for admission. - Review of Systems Constitutional: No Fever, No Chills Eyes: No Symptoms Ears, Nose, & Throat: No Symptoms Respiratory: Cough, Short Of Breath, No Wheezing Cardiac: No Chest Pain Abdominal/Gastrointestinal: No Symptoms Genitourinary Symptoms: No Symptoms Musculoskeletal: No Symptoms Skin: No Symptoms Neurological: No Symptoms Psychological: No Symptoms Endocrine: No Symptoms Hematologic/Lymphatic: No Symptoms Medications & Allergies Home Medications: Home Medication List ALPRAZolam [Xanax 0.5 mg] 0.5 mg PO TID 05/05/15 [History Confirmed 02/11/23] Topiramate [Topamax] 100 mg PO BID 05/05/15 [History Confirmed 02/11/23] Propranolol HCl [Propranolol HCl ER] 120 mg PO DAILY 04/28/17 [History Confirmed 02/11/23] Gabapentin [Neurontin 300 mg] 300 mg PO TID 11/13/20 [History Confirmed 02/11/23] ARIPiprazole [Aripiprazole] 5 mg PO DAILY 02/11/23 [History Confirmed 02/11/23] Bumetanide 1 mg [Bumex 1 mg] 1 ea DAILY 02/11/23 [History Confirmed 02/11/23] Omeprazole 1 ea DAILY 02/11/23 [History Confirmed 02/11/23] Propranolol HCl [Propranolol HCl ER] 120 mg PO DAILY 02/11/23 [History Confirmed 02/11/23] Allergies/Adverse Reactions: Allergies Allergy/AdvReac Type Severity Reaction Status Date / Time pentazocine lactate Allergy Mild Difficulty Verified 02/11/23 13:23 [From Dilan] Breathing - Past Medical History Past Medical History: Yes Neurological History: No Pertinent History ENT History: No Pertinent History Cardiac History: Arrhythmia Respiratory History: COPD Endocrine Medical History: No Pertinent History Musculoskelatal History: Arthritis GI Medical History: No Pertinent History History: No Pertinent History Pyscho-Social History: Bipolar, Depression, Anxiety Reproductive Disorders: No Pertinent History Comment: A-FIB, X-RAY'S WERE NEGATIVE OF HER FEET. R TKA. - Past Surgical History Past Surgical History: Yes Neuro Surgical History: No Pertinent History Cardiac History: No Pertinent History Respiratory Surgery: No Pertinent History GI Surgical History: No Pertinent History Genitourinary Surgical Hx: No Pertinent History Musculskeletal Surgical Hx: Orthopedic Surgery Female Surgical History: Hysterectomy, Section Other Surgical History: Ribs - Social History Smoking Status: Former smoker Exposure to second hand smoke: No Alcohol: None Drug Use: none - Physical Exam Vital Signs: Vital Signs - 24 hr Temp Pulse Resp BP BP Pulse Ox 02/11/23 18:00 94 L 02/11/23 18:00 89 21 127/74 95 02/11/23 17:45 87 25 H 118/71 91 L 02/11/23 17:30 113 H 24 108/77 93 L 02/11/23 17:11 118 H 22 108/79 02/11/23 17:01 115 H 21 108/79 93 L 02/11/23 16:31 113 H 25 H 134/90 02/11/23 16:30 120 H 25 H 02/11/23 16:20 123 H 25 H 91 L 02/11/23 16:10 122 H 25 H 93 L 02/11/23 16:00 120 H 26 H 93 L 02/11/23 15:50 119 H 28 H 91 L 02/11/23 15:40 130 H 21 94 L 02/11/23 15:33 135 H 19 96 02/11/23 15:12 100 H 20 168/86 94 L 02/11/23 15:01 110 H 25 H 168/86 89 L 02/11/23 14:30 97 H 32 H 157/78 91 L 02/11/23 14:00 105 H 15 136/75 97 02/11/23 13:35 97.2 F 101 H 18 135/80 94 L 02/11/23 13:30 99 H 29 H 136/80 90 L 02/11/23 13:29 18 97 General Appearance: no apparent distress Neurologic Exam: alert, oriented x 3 Ears, Nose, Throat Exam: dry mucous membranes Neck Exam: supple Respiratory Exam: rhonchi, No respiratory distress Cardiovascular Exam: tachycardia, irregular Gastrointestinal/Abdomen Exam: soft Extremity Exam: No pedal edema Skin Exam: normal color, warm Results - Labs Lab/Micro Results: Lab Results-Last 24 Hours 02/11/23 02/11/23 02/11/23 Range/Units 13:58 15:40 16:00 WBC 6.5 (4.0-10.5) x10^3/uL RBC 4.53 (4.1-5.4) x10^6/uL Hgb 13.4 (12.0-16.0) g/dL Hct 40.9 (35-47) % MCV 90.3 (78-100) fL MCH 29.6 (26-32) pg MCHC 32.8 (32-36) g/dL RDW 12.4 (11.5-14.0) % Plt Count 269 (150-450) x10^3/uL MPV 8.9 (7.5-11.0) fL Gran % 85.6 H (36.0-66.0) % Immature Gran % (Auto) 0.6 H (0.00-0.4) % Nucleat RBC Rel Count 0.0 (0.00-0.1) % Eos # (Auto) 0 (0-0.5) x10^3/uL Immature Gran # (Auto) 0.04 H (0.00-0.03) x10^3u/L Absolute Lymphs (auto) 0.33 L (1.0-4.6) x10^3/uL Absolute Monos (auto) 0.55 (0.0-1.3) x10^3/uL Absolute Nucleated RBC 0.00 (0.00-0.01) x10^3u/L Lymphocytes % 5.1 L (24.0-44.0) % Monocytes % 8.4 (0.0-12.0) % Eosinophils % 0.0 (0.00-5.0) % Basophils % 0.3 (0.0-0.4) % Absolute Granulocytes 5.58 (1.4-6.9) x10^3/uL Basophils # 0.02 (0-0.4) x10^3/uL Sodium (137-145) mmol/L Potassium (3.5-5.1) mmol/L Chloride (98-107) mmol/L Carbon Dioxide (22-30) mmol/L Anion Gap (5-15) MEQ/L BUN (7-17) mg/dL Creatinine (0.52-1.04) mg/dL Estimated GFR ML/MIN Glucose (74-106) mg/dL Lactic Acid 1.3 (0.4-2.0) Calcium (8.4-10.2) mg/dL Total Bilirubin (0.2-1.3) mg/dL AST (14-36) U/L ALT (0-35) U/L Alkaline Phosphatase (38-126) U/L Troponin I (0.000-0.034) ng/mL Serum Total Protein (6.3-8.2) g/dL Albumin (3.5-5.0) g/dL Procalcitonin (0.030-0.080) ng/mL Influenza Type A Ag NEGATIVE (NEGATIVE) Influenza Type B Ag NEGATIVE (NEGATIVE) RSV (PCR) NEGATIVE (NEGATIVE) SARS-CoV-2 (PCR) POSITIVE A (NEGATIVE) Slides for Path Review YES 02/11/23 02/11/23 02/11/23 Range/Units 16:00 16:00 16:00 WBC (4.0-10.5) x10^3/uL RBC (4.1-5.4) x10^6/uL Hgb (12.0-16.0) g/dL Hct (35-47) % MCV (78-100) fL MCH (26-32) pg MCHC (32-36) g/dL RDW (11.5-14.0) % Plt Count (150-450) x10^3/uL MPV (7.5-11.0) fL Gran % (36.0-66.0) % Immature Gran % (Auto) (0.00-0.4) % Nucleat RBC Rel Count (0.00-0.1) % Eos # (Auto) (0-0.5) x10^3/uL Immature Gran # (Auto) (0.00-0.03) x10^3u/L Absolute Lymphs (auto) (1.0-4.6) x10^3/uL Absolute Monos (auto) (0.0-1.3) x10^3/uL Absolute Nucleated RBC (0.00-0.01) x10^3u/L Lymphocytes % (24.0-44.0) % Monocytes % (0.0-12.0) % Eosinophils % (0.00-5.0) % Basophils % (0.0-0.4) % Absolute Granulocytes (1.4-6.9) x10^3/uL Basophils # (0-0.4) x10^3/uL Sodium 136 L (137-145) mmol/L Potassium 3.7 (3.5-5.1) mmol/L Chloride 104 (98-107) mmol/L Carbon Dioxide 23 (22-30) mmol/L Anion Gap 12.3 (5-15) MEQ/L BUN 15 (7-17) mg/dL Creatinine 0.67 (0.52-1.04) mg/dL Estimated GFR 99.4 ML/MIN Glucose 144 H (74-106) mg/dL Lactic Acid (0.4-2.0) Calcium 9.0 (8.4-10.2) mg/dL Total Bilirubin 0.50 (0.2-1.3) mg/dL AST 31 (14-36) U/L ALT 26 (0-35) U/L Alkaline Phosphatase 117 (38-126) U/L Troponin I < 0.012 (0.000-0.034) ng/mL Serum Total Protein 7.4 (6.3-8.2) g/dL Albumin 4.1 (3.5-5.0) g/dL Procalcitonin 0.065 (0.030-0.080) ng/mL Influenza Type A Ag (NEGATIVE) Influenza Type B Ag (NEGATIVE) RSV (PCR) (NEGATIVE) SARS-CoV-2 (PCR) (NEGATIVE) Slides for Path Review - Radiology Impressions Radiology Exams & Impressions: Radiology Procedures Category Date Time Status CHEST 1 VIEW (PORTABLE) Stat Exams 02/11/23 13:53 Taken Assessment/Plan (1) Pneumonia due to COVID-19 virus Current Visit: Yes Status: Acute Assessment & Plan: COVID19 pneumonia with hypoxemia 1. Admit to hospital 2. Empiric steroids 3. Start zinc/vit C 4. Supplemental oxygen Code(s): U07.1 - COVID-19; J12.82 - PNEUMONIA DUE TO CORONAVIRUS DISEASE 2018 (2) Atrial fibrillation with RVR Current Visit: Yes Status: Acute Assessment & Plan: Afib with RVR likely exacerbated by COVID19 and some intravascular volume depletion 1. Cardizem drip 2. Gentle IVFs 3. Hold diuretics 4. Check Mg, TSH 5. Monitor heart rate on telemetry Code(s): I48.91 - UNSPECIFIED ATRIAL FIBRILLATION (3) COPD (chronic obstructive pulmonary disease) Current Visit: Yes Status: Acute Qualifiers: COPD type: COPD with acute lower respiratory infection Qualified Code(s): J44.0 - Chronic obstructive pulmonary disease with (acute) lower respiratory infection Assessment & Plan: 1. Continue steroids 2. Duonebs 3. Monitor O2 levels (4) Essential (primary) hypertension Current Visit: Yes Status: Acute Assessment & Plan: 1. Continue bp meds 2. Hold diuretics 3. Gentle IVFs 4. Monitor blood pressure readings Code(s): I10 - ESSENTIAL (PRIMARY) HYPERTENSION Telemedicine Encounter - Telemedicine Encounter Telemedicine Encounter: The entirety of this encounter was performed via Telemedicine"
[2023-02-11] MEDS ORDERED: Sodium Chloride 0.9% 1000 ML 1,000 ML IV SCH (20:15)
--- NOTE | 2023-02-11 20:30 | XRAY ---
Indication: Cough. Comparison: December 29, 2022 Portable chest remains inflated and clear. Heart not enlarged. Bony thorax intact with osteopenia, mild degenerative changes, and old left 4/5 rib fractures.
[2023-02-11] MEDS: Decadron 4 MG INJ IV SCH (20:54)
[2023-02-11] MEDS: PATIENT OWN MEDICATION IH SCH (20:55)
[2023-02-11] MEDS: NEURONTIN PO SCH (20:58)
[2023-02-11] MEDS: xanAX 0.5 MG PO SCH (20:58)
[2023-02-11] MEDS ORDERED: Inderal PO SCH (22:00)
[2023-02-11] MEDS ORDERED: DUONEB 0.5-3 MG/3 ml Neb IH SCH (23:00)
[2023-02-12] MEDS: PATIENT OWN MEDICATION IH SCH ×4 (01:50→14:56)
[2023-02-12] MEDS: Decadron 4 MG INJ IV SCH ×3 (02:01→15:37)
[2023-02-12 04:57] LABS: Hematocrit 40.3 % (35-47); Hemoglobin 12.6 g/dL (12.0-16.0); Mean Cell Volume 93.5 fL (78-100); Mean Corpuscular Hemoglobin 29.2 pg (26-32); Mean Corpuscular Hgb Concent. 31.3 g/dL (32-36); Mean Platelet Volume 8.9 fL (7.5-11.0); Platelet Count 254 x10^3/uL (150-450); Red Blood Count 4.31 x10^6/uL (4.1-5.4); Red Cell Distribution Width 12.4 % (11.5-14.0); White Blood Count 4.5 x10^3/uL (4.0-10.5)
[2023-02-12 05:14] LABS: ALBUMIN 3.6 g/dL (3.5-5.0); ANION GAP 10.4 MEQ/L (5-15); BILIRUBIN,TOTAL 0.3 mg/dL (0.2-1.3); Calcium 8.8 mg/dL (8.4-10.2); Creatinine 1 0.63 mg/dL (0.52-1.04); EST GLOMERULAR FILTRATION RATE 100.9 ML/MIN; MAGNESIUM 2.3 mg/dL (1.6-2.3); Potassium 4.2 mmol/L (3.5-5.1); Total Protein 6.7 g/dL (6.3-8.2)
[2023-02-12 06:45] VITALS: TEMP 97.9
[2023-02-12] MEDS ORDERED: PATIENT OWN MEDICATION IH SCH (07:00)
[2023-02-12] MEDS ORDERED: Protonix 40MG Tablet PO SCH (10:00)
[2023-02-12] MEDS ORDERED: Vitamin C 500 MG PO SCH (10:00)
[2023-02-12] MEDS ORDERED: Zinc Gluconate 50 MG PO SCH (10:00)
[2023-02-12] MEDS ORDERED: HEPARIN 5000 UNITS/0.5 ML (HIGH RISK MED) SQ SCH (10:00)
[2023-02-12] MEDS ORDERED: Inderal PO SCH (10:00)
[2023-02-12] MEDS: NEURONTIN PO SCH ×2 (10:54→15:37)
[2023-02-12] MEDS: xanAX 0.5 MG PO SCH ×2 (10:54→15:37)
--- NOTE | 2023-02-12 14:26 | PCM.DS ---
Discharge Summary Date of Admission: 02/11/23 19:27 Date of Discharge: 02/12/23 Admitting Physician: CELY KENDRICK MD Primary Care Provider: HELLEN WHARTON MYRNA Allergies Allergies pentazocine lactate [From [facility]] Allergy (Mild, Verified 02/11/23 13:23) Difficulty Breathing Hospital Summary - Hospital Course Hospital Course: This patient was admitted with atrial fib with RVR. She has COPD and had some hypoxia and dyspnea on admission. There was mention of possible pneumonia on admission but Cxray showed no pneumonia and clinical picture did not suggest pneumonia. The patient was treated with IV Cardizem. Her oxygenation and dyspnea improved. The patient is improved and will be dismissed on 02/12/23. - Vitals & Intake/Output Vital Signs: Vital Signs Temperature 97.9 F 02/12/23 06:00 Pulse Rate 70 02/12/23 14:00 Respiratory Rate 25 H 02/12/23 14:00 Blood Pressure 165/82 02/12/23 14:00 O2 Sat by Pulse Oximetry 96 02/12/23 14:00 Intake & Output: Intake & Output 02/10/23 02/11/23 02/12/23 02/13/23 11:59 11:59 11:59 11:59 Intake Total 600 Output Total 600 Balance 0 Weight 118.8 kg - Lab Result Diagrams: 02/12/23 04:19 02/12/23 04:19 Lab Results-Last 24 Hrs: Lab Results-Last 24 Hours 02/11/23 02/11/23 02/11/23 Range/Units 13:58 15:40 16:00 WBC 6.5 (4.0-10.5) x10^3/uL RBC 4.53 (4.1-5.4) x10^6/uL Hgb 13.4 (12.0-16.0) g/dL Hct 40.9 (35-47) % MCV 90.3 (78-100) fL MCH 29.6 (26-32) pg MCHC 32.8 (32-36) g/dL RDW 12.4 (11.5-14.0) % Plt Count 269 (150-450) x10^3/uL MPV 8.9 (7.5-11.0) fL Gran % 85.6 H (36.0-66.0) % Immature Gran % (Auto) 0.6 H (0.00-0.4) % Nucleat RBC Rel Count 0.0 (0.00-0.1) % Eos # (Auto) 0 (0-0.5) x10^3/uL Immature Gran # (Auto) 0.04 H (0.00-0.03) x10^3u/L Absolute Lymphs (auto) 0.33 L (1.0-4.6) x10^3/uL Absolute Monos (auto) 0.55 (0.0-1.3) x10^3/uL Absolute Nucleated RBC 0.00 (0.00-0.01) x10^3u/L Lymphocytes % 5.1 L (24.0-44.0) % Monocytes % 8.4 (0.0-12.0) % Eosinophils % 0.0 (0.00-5.0) % Basophils % 0.3 (0.0-0.4) % Absolute Granulocytes 5.58 (1.4-6.9) x10^3/uL Basophils # 0.02 (0-0.4) x10^3/uL Sodium (137-145) mmol/L Potassium (3.5-5.1) mmol/L Chloride (98-107) mmol/L Carbon Dioxide (22-30) mmol/L Anion Gap (5-15) MEQ/L BUN (7-17) mg/dL Creatinine (0.52-1.04) mg/dL Estimated GFR ML/MIN Glucose (74-106) mg/dL Lactic Acid 1.3 (0.4-2.0) Calcium (8.4-10.2) mg/dL Magnesium (1.6-2.3) mg/dL Total Bilirubin (0.2-1.3) mg/dL AST (14-36) U/L ALT (0-35) U/L Alkaline Phosphatase (38-126) U/L Troponin I (0.000-0.034) ng/mL Serum Total Protein (6.3-8.2) g/dL Albumin (3.5-5.0) g/dL Procalcitonin (0.030-0.080) ng/mL Influenza Type A Ag NEGATIVE (NEGATIVE) Influenza Type B Ag NEGATIVE (NEGATIVE) RSV (PCR) NEGATIVE (NEGATIVE) SARS-CoV-2 (PCR) POSITIVE A (NEGATIVE) Slides for Path Review YES 02/11/23 02/11/23 02/11/23 Range/Units 16:00 16:00 16:00 WBC (4.0-10.5) x10^3/uL RBC (4.1-5.4) x10^6/uL Hgb (12.0-16.0) g/dL Hct (35-47) % MCV (78-100) fL MCH (26-32) pg MCHC (32-36) g/dL RDW (11.5-14.0) % Plt Count (150-450) x10^3/uL MPV (7.5-11.0) fL Gran % (36.0-66.0) % Immature Gran % (Auto) (0.00-0.4) % Nucleat RBC Rel Count (0.00-0.1) % Eos # (Auto) (0-0.5) x10^3/uL Immature Gran # (Auto) (0.00-0.03) x10^3u/L Absolute Lymphs (auto) (1.0-4.6) x10^3/uL Absolute Monos (auto) (0.0-1.3) x10^3/uL Absolute Nucleated RBC (0.00-0.01) x10^3u/L Lymphocytes % (24.0-44.0) % Monocytes % (0.0-12.0) % Eosinophils % (0.00-5.0) % Basophils % (0.0-0.4) % Absolute Granulocytes (1.4-6.9) x10^3/uL Basophils # (0-0.4) x10^3/uL Sodium 136 L (137-145) mmol/L Potassium 3.7 (3.5-5.1) mmol/L Chloride 104 (98-107) mmol/L Carbon Dioxide 23 (22-30) mmol/L Anion Gap 12.3 (5-15) MEQ/L BUN 15 (7-17) mg/dL Creatinine 0.67 (0.52-1.04) mg/dL Estimated GFR 99.4 ML/MIN Glucose 144 H (74-106) mg/dL Lactic Acid (0.4-2.0) Calcium 9.0 (8.4-10.2) mg/dL Magnesium (1.6-2.3) mg/dL Total Bilirubin 0.50 (0.2-1.3) mg/dL AST 31 (14-36) U/L ALT 26 (0-35) U/L Alkaline Phosphatase 117 (38-126) U/L Troponin I < 0.012 (0.000-0.034) ng/mL Serum Total Protein 7.4 (6.3-8.2) g/dL Albumin 4.1 (3.5-5.0) g/dL Procalcitonin 0.065 (0.030-0.080) ng/mL Influenza Type A Ag (NEGATIVE) Influenza Type B Ag (NEGATIVE) RSV (PCR) (NEGATIVE) SARS-CoV-2 (PCR) (NEGATIVE) Slides for Path Review 02/11/23 02/11/23 02/12/23 Range/Units 20:22 23:50 04:19 WBC 4.5 (4.0-10.5) x10^3/uL RBC 4.31 (4.1-5.4) x10^6/uL Hgb 12.6 (12.0-16.0) g/dL Hct 40.3 (35-47) % MCV 93.5 (78-100) fL MCH 29.2 (26-32) pg MCHC 31.3 L (32-36) g/dL RDW 12.4 (11.5-14.0) % Plt Count 254 (150-450) x10^3/uL MPV 8.9 (7.5-11.0) fL Gran % (36.0-66.0) % Immature Gran % (Auto) (0.00-0.4) % Nucleat RBC Rel Count (0.00-0.1) % Eos # (Auto) (0-0.5) x10^3/uL Immature Gran # (Auto) (0.00-0.03) x10^3u/L Absolute Lymphs (auto) (1.0-4.6) x10^3/uL Absolute Monos (auto) (0.0-1.3) x10^3/uL Absolute Nucleated RBC (0.00-0.01) x10^3u/L Lymphocytes % (24.0-44.0) % Monocytes % (0.0-12.0) % Eosinophils % (0.00-5.0) % Basophils % (0.0-0.4) % Absolute Granulocytes (1.4-6.9) x10^3/uL Basophils # (0-0.4) x10^3/uL Sodium (137-145) mmol/L Potassium (3.5-5.1) mmol/L Chloride (98-107) mmol/L Carbon Dioxide (22-30) mmol/L Anion Gap (5-15) MEQ/L BUN (7-17) mg/dL Creatinine (0.52-1.04) mg/dL Estimated GFR ML/MIN Glucose (74-106) mg/dL Lactic Acid (0.4-2.0) Calcium (8.4-10.2) mg/dL Magnesium (1.6-2.3) mg/dL Total Bilirubin (0.2-1.3) mg/dL AST (14-36) U/L ALT (0-35) U/L Alkaline Phosphatase (38-126) U/L Troponin I < 0.012 < 0.012 (0.000-0.034) ng/mL Serum Total Protein (6.3-8.2) g/dL Albumin (3.5-5.0) g/dL Procalcitonin (0.030-0.080) ng/mL Influenza Type A Ag (NEGATIVE) Influenza Type B Ag (NEGATIVE) RSV (PCR) (NEGATIVE) SARS-CoV-2 (PCR) (NEGATIVE) Slides for Path Review 02/12/23 Range/Units 04:19 WBC (4.0-10.5) x10^3/uL RBC (4.1-5.4) x10^6/uL Hgb (12.0-16.0) g/dL Hct (35-47) % MCV (78-100) fL MCH (26-32) pg MCHC (32-36) g/dL RDW (11.5-14.0) % Plt Count (150-450) x10^3/uL MPV (7.5-11.0) fL Gran % (36.0-66.0) % Immature Gran % (Auto) (0.00-0.4) % Nucleat RBC Rel Count (0.00-0.1) % Eos # (Auto) (0-0.5) x10^3/uL Immature Gran # (Auto) (0.00-0.03) x10^3u/L Absolute Lymphs (auto) (1.0-4.6) x10^3/uL Absolute Monos (auto) (0.0-1.3) x10^3/uL Absolute Nucleated RBC (0.00-0.01) x10^3u/L Lymphocytes % (24.0-44.0) % Monocytes % (0.0-12.0) % Eosinophils % (0.00-5.0) % Basophils % (0.0-0.4) % Absolute Granulocytes (1.4-6.9) x10^3/uL Basophils # (0-0.4) x10^3/uL Sodium 136 L (137-145) mmol/L Potassium 4.2 (3.5-5.1) mmol/L Chloride 106 (98-107) mmol/L Carbon Dioxide 24 (22-30) mmol/L Anion Gap 10.4 (5-15) MEQ/L BUN 16 (7-17) mg/dL Creatinine 0.63 (0.52-1.04) mg/dL Estimated GFR 100.9 ML/MIN Glucose 154 H (74-106) mg/dL Lactic Acid (0.4-2.0) Calcium 8.8 (8.4-10.2) mg/dL Magnesium 2.3 (1.6-2.3) mg/dL Total Bilirubin 0.30 (0.2-1.3) mg/dL AST 26 (14-36) U/L ALT 24 (0-35) U/L Alkaline Phosphatase 99 (38-126) U/L Troponin I (0.000-0.034) ng/mL Serum Total Protein 6.7 (6.3-8.2) g/dL Albumin 3.6 (3.5-5.0) g/dL Procalcitonin (0.030-0.080) ng/mL Influenza Type A Ag (NEGATIVE) Influenza Type B Ag (NEGATIVE) RSV (PCR) (NEGATIVE) SARS-CoV-2 (PCR) (NEGATIVE) Slides for Path Review - Radiology Exams Ordered Rad Exams-Entire Visit: Radiology Procedures Category Date Time Status CHEST 1 VIEW (PORTABLE) Stat Exams 02/11/23 13:53 Completed - Procedures and Test Procedures and Tests throughout Hospitalization: Therapy Orders & Screens 02/11/23 07:00 Respiratory MDI BID Comment: BREZTRI 2 PUFFS BID Diagnosis: cough 02/11/23 19:27 Oxygen Nasal Cannula 2 lpm Comment: Respiratory Therapy Consult ONCE Comment: Reason For Exam: 02/11/23 20:36 RT Screen per Nursing Assess ONCE Comment: Protocol Order Physician Instructions: Greater than 3 points order RT Admission Screen Reason For Exam: Triggered on Admission Diagnosis: cough Diagnosis: cough Pneumonia: Yes Home O2: No Asthma: No CHF: Yes Home CPAP/BIPAP: No Home Nebs/MDI: Yes Total Points: 11 02/11/23 22:56 BiPap/CPAP ROUTINE Comment: Diagnosis: cough 02/11/23 23:00 Respiratory MDI Q4H Comment: ALBUTEROL SULFATE MDI (PT'S HOME MDI) 4 PUFFS Q4H Diagnosis: cough 02/12/23 09:00 ST Screen per Nursing Assess ONCE Comment: Protocol Order Physician Instructions: Greater than [address] Admission Screening Reason For Exam: Triggered on Admission Diagnosis: cough CVA/Dyshpagia/Aphasia: No Cognitive Deficits: No Dehydration/Nutrition Deficit: No Reflux: No Oral-Motor Difficulties: No Pneumonia: Yes Long Term Resident: No Total Points: 5 Discharge Exam General Appearance: no apparent distress Neurologic Exam: alert, oriented x 3, cooperative Eye Exam: PERRL, EOMI, eyes nml inspection Ears, Nose, Throat Exam: normal ENT inspection Neck Exam: normal inspection, non-tender, supple, full range of motion Respiratory Exam: normal breath sounds, lungs clear Cardiovascular Exam: regular rate/rhythm, normal heart sounds, normal peripheral pulses Gastrointestinal/Abdomen Exam: soft, normal bowel sounds, tenderness Pelvic Exam: deferred Rectal Exam: deferred Back Exam: normal inspection Extremity Exam: normal inspection Skin Exam: normal color Lymphatic Exam: No adenopathy Final Diagnosis/Problem List - Final Discharge Diagnosis/Problem (1) Atrial fibrillation with RVR Current Visit: Yes Status: Acute Code(s): I48.91 - UNSPECIFIED ATRIAL FIBRILLATION (2) COPD (chronic obstructive pulmonary disease) Current Visit: Yes Status: Acute (3) Essential (primary) hypertension Current Visit: Yes Status: Acute Code(s): I10 - ESSENTIAL (PRIMARY) HYPERTENSION Telemedicine Encounter - Telemedicine Encounter Telemedicine Encounter: The entirety of this encounter was performed via Telemedicine after consent obt ained. Labs and imaging reviewed. 25 minutes spent on care of this patient. Thomas Acuna MD - Discharge Disposition: Home, Self-Care Condition: Stable Prescriptions: Continue ALPRAZolam [Xanax 0.5 mg] 0.5 mg PO TID Gabapentin [Neurontin ] 300 mg PO TID Propranolol HCl [Propranolol HCl ER] 120 mg PO DAILY Omeprazole 40 mg PO DAILY ARIPiprazole [Aripiprazole] 5 mg PO DAILY Bumetanide 1 mg [Bumex 1 mg] 1 ea DAILY Budesonide/Glycopyr/Formoterol [Breztri Aerosphere Inhaler] 2 puffs IH BID Albuterol Common Canister [Ventolin Common Canister] 2 puff IH Q6H PRN PRN PRN Reason: Shortness Of Breath Follow up with: HELLEN WHARTON MD [Primary Care Provider] -
[2023-02-12 17:39] VITALS: BP 141/79; PULSE 64; RESP 19; O2SAT 97
== END 2023-02-12 18:03 | disposition home or self-care (01) ==
LOC: ED 13:19 → ICU 19:23 → UNDOADMOB 19:23 → ICU 19:27
PROVIDERS: ADMIT Internal Medicine Nephrology; ATTEND Internal Medicine Nephrology
DX: I48.20 Chronic atrial fibrillation, unspecified (principal); J44.0 Chronic obstructive pulmonary disease with (acute) lower respiratory infection; U07.1 COVID-19; J12.82 Pneumonia due to coronavirus disease 2019; I10 Essential (primary) hypertension; E78.5 Hyperlipidemia, unspecified; R00.0 Tachycardia, unspecified; Z79.899 Other long term (current) drug therapy; Z20.828 Contact with and (suspected) exposure to other viral communicable diseases
CPT/HCPCS: 0241U; 36000; 36415; 71045; 80053; 83605; 83735; 84145; 84484; 85025; 85027; 87040; 93005; 94640; 94660; 96360; 96365; 96366; 96374; 96375; 99285; 93268; J1100; J1644; Q0162; Q3014; A9270-GY; G0378

== ENCOUNTER 2023-04-07 11:54 | Day surgery (SDC) | payer MEDICARE ==
[2023-04-07] MEDS ORDERED: BUPIVACAINE 0.5% VIAL IJ ONE (11:55)
[2023-04-07] MEDS ORDERED: DIPRIVAN 200 MG/20 ML IV ONE (14:37)
[2023-04-07] MEDS ORDERED: Lactated Ringers 1,000 ML IV ONE (16:19)
--- NOTE | 2023-04-07 16:25 | XRAY ---
Indication: Bilateral L4-S1 MBB. Intraoperative fluoroscopy provided for 26 seconds. Single digital spot image submitted for interpretation demonstrates posterior needle tips projecting over the expected left and right L4-S1 nerve roots. Correlate with intraoperative findings/report.
--- NOTE | 2023-04-07 16:51 | XRAY ---
26 seconds of fluoroscopy was used in surgery for a bilateral L4-S1 MBB.
== END 2023-04-07 15:09 | disposition home or self-care (01) ==
LOC: SDC-PAIN 11:54
PROVIDERS: ATTEND Psychiatry & Neurology Pain Medicine
DX: M47.816 Spondylosis without myelopathy or radiculopathy, lumbar region (principal)
CPT/HCPCS: 64493; 64494; 72020; 77002; J2704

== ENCOUNTER 2023-09-15 11:31 | Day surgery (SDC) | payer MEDICARE ==
[2023-09-15] MEDS ORDERED: LIDOCAINE HCL 1% 50 MG/5 ML VL PF IJ ONE (11:32)
[2023-09-15] MEDS ORDERED: BUPIVACAINE 0.5% VIAL IJ ONE (11:32)
[2023-09-15] MEDS ORDERED: Depo-Medrol 40 MG/ML IM ONE (11:32)
[2023-09-15] MEDS ORDERED: DIPRIVAN 200 MG/20 ML IV ONE (14:13)
[2023-09-15] MEDS ORDERED: Lactated Ringers 1,000 ML IV ONE (14:38)
--- NOTE | 2023-09-15 16:26 | XRAY ---
Indication: Right L4-S1 RFA. Intraoperative fluoroscopy provided for 19 seconds. 3 digital spot images submitted for interpretation demonstrates posterior needle tips projecting over the expected right L4-S1 nerve roots. Correlate with intraoperative findings/report.
--- NOTE | 2023-09-15 16:51 | XRAY ---
19 seconds of fluoroscopy was used in surgery for a right L4-S1 RFA.
== END 2023-09-15 14:38 | disposition home or self-care (01) ==
LOC: SDC-PAIN 11:31
PROVIDERS: ATTEND Psychiatry & Neurology Pain Medicine
DX: M47.816 Spondylosis without myelopathy or radiculopathy, lumbar region (principal)
CPT/HCPCS: 64635; 64636; 72100; 77002; J1010; J2001; J2704

== ENCOUNTER 2023-09-22 11:51 | Day surgery (SDC) | payer MEDICARE, BC ==
[2023-09-22] MEDS ORDERED: BUPIVACAINE 0.5% VIAL IJ ONE (11:52)
[2023-09-22] MEDS ORDERED: Depo-Medrol 40 MG/ML IM ONE (11:52)
[2023-09-22] MEDS ORDERED: LIDOCAINE HCL 1% 50 MG/5 ML VL PF IJ ONE (11:52)
[2023-09-22] MEDS ORDERED: DIPRIVAN 200 MG/20 ML IV ONE (13:57)
[2023-09-22] MEDS ORDERED: Lactated Ringers 1,000 ML IV ONE (14:02)
--- NOTE | 2023-09-22 16:51 | XRAY ---
Indication: Left L4-S1 RFA. Intraoperative fluoroscopy provided for 21 seconds. 4 digital spot image submitted for interpretation demonstrates posterior needle tips projecting over the expected left L4-S1 nerve roots. Correlate with intraoperative findings/report.
--- NOTE | 2023-09-22 17:04 | XRAY ---
21 seconds of fluoroscopy was used in surgery for a left L4-S1 RFA.
== END 2023-09-22 15:30 | disposition home or self-care (01) ==
LOC: SDC-PAIN 11:51
PROVIDERS: ATTEND Psychiatry & Neurology Pain Medicine
DX: M47.817 Spondylosis without myelopathy or radiculopathy, lumbosacral region (principal)
CPT/HCPCS: 64635; 64636; 72100; 77002; J2001; J2704